=== PATIENT | female | born 1975 | race African-American/Black ===

== ENCOUNTER 2018-08-07 09:33 | Emergency (ER) | payer SELFPAY ==
[~2018-08-07] VITALS: Ht 180.3 cm; Wt 84.5 kg
[2018-08-07] MEDS ORDERED: ACYC200C PO (09:52)
[2018-08-07 10:55] VITALS: BP 129/82
== END 2018-08-07 11:05 | disposition home or self-care (01) ==
LOC: EMS 09:35
DX: A60.00 Herpesviral infection of urogenital system, unspecified (principal); F12.90 Cannabis use, unspecified, uncomplicated; F17.210 Nicotine dependence, cigarettes, uncomplicated; Z88.0 Allergy status to penicillin; Z88.1 Allergy status to other antibiotic agents; Z88.5 Allergy status to narcotic agent

== ENCOUNTER 2018-11-10 13:31 | Emergency (ER) | payer SELFPAY ==
[~2018-11-10] VITALS: Ht 180.3 cm; Wt 89.5 kg
[~2018-11-10 13:31] MED LIST: ACYC200C PO
[2018-11-10 14:50] VITALS: BP 113/76
== END 2018-11-10 14:53 | disposition home or self-care (01) ==
LOC: EMS 13:32
DX: A60.09 Herpesviral infection of other urogenital tract (principal); F17.210 Nicotine dependence, cigarettes, uncomplicated; F12.90 Cannabis use, unspecified, uncomplicated; Z88.0 Allergy status to penicillin; Z88.5 Allergy status to narcotic agent; Z88.1 Allergy status to other antibiotic agents

== ENCOUNTER 2019-03-03 07:30 | Emergency (ER) | payer SELFPAY ==
[~2019-03-03] VITALS: Ht 180.3 cm; Wt 81.8 kg
[2019-03-03 10:10] VITALS: BP 119/70
== END 2019-03-03 10:12 | disposition home or self-care (01) ==
LOC: EMS 07:32
DX: B00.1 Herpesviral vesicular dermatitis (principal); F12.90 Cannabis use, unspecified, uncomplicated; F17.210 Nicotine dependence, cigarettes, uncomplicated; Z88.0 Allergy status to penicillin; Z88.1 Allergy status to other antibiotic agents; Z88.5 Allergy status to narcotic agent